=== PATIENT | female | born 2000 | race Caucasian/White ===

== ENCOUNTER → 2024-09-11 12:41 | Outpatient (REF) | payer SELFPAY | LOC: RAD 12:41 | PROVIDERS: ATTENDING PHYSICIAN Nurse Practitioner Family | DX: J06.9 Acute upper respiratory infection, unspecified (principal); R06.02 Shortness of breath | CPT/HCPCS: 71046 ==

== ENCOUNTER 2024-09-11 18:57 | Emergency (ER) | payer OTHER, SELFPAY ==
[2024-09-11 19:00] VITALS: BP 151/105
[2024-09-11 19:24] LABS: Urine Albumin 3+ (Neg - Trace); Urine Bilirubin Negative (Negative); Urine Character Slightly Cloudy (Clear); Urine Color Yellow; Urine Glucose Negative (Negative); Urine Ketone 2+ (Negative); Urine Leukocyte 2+ (Negative); Urine Nitrite Negative (Negative); Urine Occult Blood 4+ (Negative); Urine Urobilinogen 2+ (Neg - 1+)
[2024-09-11 19:26] LABS: % Basophils 0.3 % (0-2); % Immature Granulocytes 0.3 % (0-0.5); % Lymphocytes 9.3 % (20.5-51.1); % Monocytes 8.8 % (1.7-9.3); % Neutrophils 81.3 % (42.2-75.2); Absolute Lymphocytes 0.6 10^3/uL (1.2-3.4); Absolute Monocytes 0.6 10^3/uL (0.1-0.6); Absolute Neutrophils 5.4 10^3/uL (1.4-6.5); Hematocrit 41.4 % (37.0-47.0); Hemoglobin 14.6 g/dL (12.0-16.0); Mean Corp Hgb Conc. 35.3 g/dL (33.0-37.0); Mean Corpuscular Hgb 30.4 pg (27.0-31.0); Mean Corpuscular Volume 86.3 fL (81.0-99.0); Mean Platelet Volume 10.8 fL (7.4-10.4); Nucleated Red Blood Cells % 0 %; Platelet Count 208 10^3/uL (130-400); Red Cell Dist. Width 12.3 % (11.5-14.5); White Blood Cell Count 6.7 10^3/uL (4.8-10.8)
[2024-09-11 19:32] LABS: Urine Bacteria Few (Negative); Urine Squamous Cell >30 /LPF (Few)
[2024-09-11 19:33] LABS: Urine Red Blood Cell 26-30 /HPF (0-2)
[2024-09-11 19:41] LABS: HCG, Serum Qualitative Screen Negative
[2024-09-11 19:45] LABS: ALT (SGPT) 26 U/L (0-35); AST (SGOT) 23 U/L (14-36); Albumin 5.4 g/dl (3.5-5.0); Alkaline Phosphatase 107 U/L (38-126); Blood Urea Nitrogen 7 mg/dl (7-17); Calcium 10.4 mg/dl (8.4-10.2); Carbon Dioxide 21 mmol/L (22-30); Chloride 102 mmol/L (98-107); Glucose 101 mg/dl (70-99); Potassium 4.3 mmol/L (3.5-5.1); Sodium 138 mmol/L (135-145); Total Bilirubin 0.8 mg/dl (0.2-1.3); Total Protein 8.9 g/dl (6.3-8.2); eGFR > 60.00
[2024-09-11 19:52] LABS: Troponin I < 0.012 ng/ml
[2024-09-11 22:00] VITALS: BP 142/73; BMI 35.2
--- NOTE | 2024-09-11 22:06 | EDRN ---
Pt has been sick since Monday but symptoms have worsened in past 2 days. Pt went to her doctor yesterday and was diagnosed with PNA and started on augmentin, proair inhaler and benzonatate. Pt had a cxr done today but did not get the results. Pt
reportedly tested negative for flu and covid yesterday. Pt has felt chilled, unknown if she had a fever. Decreased appetite and when she ate tonight, she vomited soon afterwards. Pt feels confused and sob and says her chest is tight and her back
'is killing me.' Pt with cough productive 'lots of yellow phlegm.' Pt took DayQuil this morning.
--- NOTE | 2024-09-11 22:08 | ED.GENMED ---
History of Present Illness
General
Chief Complaint: Chest Pain
Time Seen by Provider: 09/11/24 21:49
History of Present Illness
History of Present Illness:
24-year-old female presents the emergency department for evaluation of diffuse body pain as well as coughing for the past 2 days. She went to her primary care physician yesterday and was diagnosed with pneumonia empirically and treated with
Augmentin. She has taken 2 doses thus far. Notes that she is having increased abdominal pain and vomiting today particularly after eating SpaghettiOs. No diarrhea.
Past History
Past History
ED Past Medical History: None
Review of Systems
Review of Systems
Allergies reviewed?: Yes
All Other Systems: ROS reviewed and negative except as documented in HPI and ROS
Phy Exam
Physical Exam
Physical Exam:
GEN: Well appearing, NAD, WDWN
HEENT: Oral mucosa moist, no scleral icterus
Cardiac: Regular rate and rhythm, no murmurs
Lung: No respiratory distress, no tachypnea, lungs clear to auscultation bilaterally
MSK: No gross deformity or injuries
Skin: Good color, no pallor or jaundice, no rashes
Neuro: AO x3, moves all extremities freely
Psych: Calm, cooperative
Scores
Heart Score for Chest Pain Patients
STEMI patient?: Not applicable
Course
Orders/Labs/Results
Orders:
Orders
09/11/24 19:02
Electrocardiogram (*1) Urgent
Reason for Study: Chest Pain
EKG- Treatment ONCE
09/11/24 19:03
Test Result ONCE
09/11/24 19:17
Complete Blood Count/With Diff Urgent
Comprehensive Metabolic Panel Urgent
HCG, Serum Qualitative Screen Urgent
Comment: Notify provider if positive test present
Troponin I Urgent
Urinalysis Reflex To Culture Urgent
Date Specimen was Collected: 09/11/24
Time Specimen was Collected: 19:03
Urine Microscopic Reflex Cult Urgent
Urine Culture Urgent
JOHNNIE Source: U
Specimen Description:
Date Specimen was Collected: 09/11/24
Time Specimen was Collected: 19:03
09/11/24 22:08
Acetaminophen [Tylenol] 1,000 mg PO NOW STA
Ondansetron Orally Disint [Zofran Odt (Orally Disintegrating)] 4 mg PO NOW STA
Abnormal Lab Results
09/11/24
19:17
MPV 10.8 H fL
(7.4-10.4)
Absolute Lymphs (auto) 0.6 L 10^3/uL
(1.2-3.4)
Neutrophils % 81.3 H %
(42.2-75.2)
Lymphocytes % 9.3 L %
(20.5-51.1)
Carbon Dioxide 21 L mmol/L
(22-30)
Glucose 101 H mg/dl
(70-99)
Calcium 10.4 H mg/dl
(8.4-10.2)
Total Protein 8.9 H g/dl
(6.3-8.2)
Albumin 5.4 H g/dl
(3.5-5.0)
Urine Ketones 2+ A
(Negative)
Ur Occult Blood Reflex 4+ A
(Negative)
Urine Urobilinogen 2+ A
(Neg - 1+)
Leukocyte Esterase Rfl 2+ A
(Negative)
Urine RBC 26-30 A /HPF
(0-2)
Urine Bacteria (Reflex) Few A
(Negative)
Urine Albumin (Reflex) 3+ A
(Neg - Trace)
09/11/24 19:17
09/11/24 19:17
Vital Signs
Initial and Last Documented VS:
Initial Vital Signs
Temp Pulse Resp BP Pulse Ox
98.3 F 98 16 151/105 99
09/11/24 19:00 09/11/24 19:00 09/11/24 19:00 09/11/24 19:00 09/11/24 19:00
Last Documented Vital Signs
Temp Pulse Resp BP Pulse Ox
101.8 F H 87 16 120/79 96
09/11/24 23:30 09/11/24 23:00 09/11/24 23:00 09/11/24 23:00 09/11/24 23:00
MDM/Problems Addressed
MDM/Problems Addressed:
Likely self-limited viral syndrome. Patient will continue previously prescribed antibiotics. Tolerating p.o. fluids at time of discharge
*Critical Care Note
Total Time (30-74mins, 75-104mins- exclusive of procedures): Not Applicable
ED Attending Note
-
Portions of this chart may have been created with voice recognition software.� Occasional wrong word or��sound alike� substitutions may have occurred due to the inherent limitations of voice recognition software.
Discharge Plan
Departure
Patient Disposition: Home (Routine Discharge)
Date of Disposition: 09/11/24
Time of Disposition: :25
Patient with high blood pressure during this ER visit?: No
Discharge Problem:
Acute viral syndrome
Instructions: Fever in adults - Discharge instructions
Prescriptions:
New
ondansetron 4 mg tablet,disintegrating
4 mg PO TIDPRN PRN (Reason: nausea/vomiting) Qty: 10 0RF
No Action
Mirena 21 mcg/24hr (up to 8 yrs) 52 mg Intrauterine Device
1 device INTRAUTERINE ONCE
trazodone 50 mg Tablet
50 mg PO HS
benzonatate 200 mg Capsule
200 mg PO Q3HPRN PRN (Reason: cough)
oxcarbazepine 600 mg Tablet
600 mg PO BID
albuterol sulfate [ProAir HFA] 90 mcg/actuation Hfa Aerosol Inhaler
1 puff INHALATION Q4HPRN PRN (Reason: sob)
amoxicillin-pot clavulanate [Augmentin] 875-125 mg Tablet
1 tab PO BID
bupropion HCl [Wellbutrin XL] 150 mg Tablet Extended Release 24 Hr
150 mg PO DAILY
sertraline 150 mg Capsule
150 mg PO DAILY
Referrals:
Anitra Campo CRNP [Family Provider] -
Interventions
Interventions:
*Risk Screen - Suicide Last Done: 09/11/24 22:38
*General Assessment Last Done: 09/11/24 22:00
*Neglect/Abuse Screening Last Done: 09/11/24 22:00
*ED- Fall Risk Assessment Last Done: 09/11/24 22:00
*ED COVID-19 Vaccine History Last Done: 09/11/24 22:00
*Nursing Disposition Last Done: 09/11/24 23:38
ED- Cardiac Assessment Last Done: 09/11/24 22:00
Discharge Date and Time
Discharge Date/Time: 09/11/24 23:38
Print Language: THAI
[2024-09-11] MEDS: ZOFRAN ODT (ORALLY DISINTEGRATING) 4 MG PO (22:13)
--- NOTE | 2024-09-11 22:16 | EDRN ---
Pt vomited just prior to zofran administration. Instructed pt to not drink anything. Will wait for zofran to take effect before giving tylenol.
[2024-09-11] MEDS: TYLENOL 1000 MG PO (22:35)
[2024-09-11 23:00] VITALS: BP 120/79
== END 2024-09-11 23:38 | disposition home or self-care (01) ==
LOC: EMR 18:57
PROVIDERS: EMERGENCY PHYSICIAN Emergency Medicine; FAMILY PHYSICIAN Nurse Practitioner Family
DX: B34.9 Viral infection, unspecified (principal); R07.89 Other chest pain
CPT/HCPCS: 99283; 80053; 81003; 81015; 84484; 84703; 85025; 87086; 93005